=== PATIENT | female | born 1940 | race Caucasian/White ===

== ENCOUNTER 2017-11-28 14:19 | Outpatient (CLI) | payer MEDICARE, OTHER ==
--- NOTE | 2017-11-28 18:44 | Diagnostic Imaging Report ---
WILIAM SHI [facility] [address] [place] [facility].[address] [id number] Report Submission Date: Nov 28, 2017 2:46:08 PM CDT Patient Study Name: LOW ESCAMILLA Date: Nov 28, 2017 2:25:40 PM CDT Modality Type: DX Gender: F Description: CHEST : 36 Institution: [facility] Physician: WILIAM SHI Examination: PA and lateral chest. History: Evaluate lung horta. CXR, COUGH X2-3 WEEKS (Hx) Comparison exam: None provided. Findings: PA lateral chest demonstrate a normal cardiac and mediastinal silhouette. Mild tortuosity of the thoracic aorta with vascular calcifications involving aortic arch. Chronic appearing interstitial changes. No focal infiltrate. No blunting of the costophrenic margins. Scattered granuloma. Osseous structures are appropriate for age. Impression: Chronic parenchymal changes. No acute appearing pulmonary process. Electronically signed on Nov 28, 2017 2:46:08 PM CDT by: Huey PHIPPS
== END 2017-11-28 14:55 ==
LOC: RAD 14:19
PROVIDERS: ATTEND Nurse Practitioner Family
DX: R05 Cough (principal)
CPT/HCPCS: 71046